=== PATIENT | male | born 2000 ===

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

== ENCOUNTER 2018-08-27 18:49 | Emergency (ER) | payer MEDICAID, OTHER ==
[2018-08-27] MEDS ORDERED: Sodium Chloride 0.9% 1,000 ML IV STA (19:33)
[2018-08-27 20:05] LABS: BASO # 0.1 K/uL (0.0-0.2); BASO % 1.1 % (0.0-2.0); EOS % 0.1 % (0.0-4.0); HEMOGLOBIN 14.8 g/dL (12.0-18.0); LYMPH # 0.4 K/uL (1.0-4.3); LYMPH % 2.7 % (20.0-40.0); MEAN CELL VOLUME 85.1 fl (80.0-94.0); MEAN CORPUSCULAR HEMOGLOBIN 28.8 pg (27.0-31.0); MEAN CORPUSCULAR HGB CONC 33.8 g/dL (33.0-37.0); MEAN PLATELET VOLUME 7.4 fl (7.2-11.7); MONO # 0.6 K/uL (0.0-0.8); MONO % 4.2 % (0.0-10.0); NEUT # 12.1 K/uL (1.8-7.0); NEUT % 91.9 % (50.0-75.0); PLATELET COUNT 314 K/uL (130-400); RBC 5.14 Mil/uL (4.40-5.90); RED CELL DISTRIBUTION WIDTH 12.9 % (11.5-14.5); WHITE BLOOD COUNT 13.2 K/uL (4.8-10.8)
--- NOTE | 2018-08-27 20:25 | ED PDOC ---
HPI:Nausea, Vomiting, Diarrhea Time Seen by Provider: 08/27/18 19:10 Chief Complaint (Nursing): GI Problem Chief Complaint (Provider): GI Problem History Per: Patient History/Exam Limitations: no limitations Onset/Duration Of Symptoms: Hrs (x 10) Current Symptoms Are (Timing): Still Present Associated Symptoms: Fever, Nausea, Vomiting, Diarrhea, Loss Of Appetite, Other (body aches) Additional Complaint(s): 17 year old male with no significant medical history presents to the ED for evaluation of multiple episodes of vomiting, beginning this morning around 11am. He reports 8 episodes of non bloody vomiting with the last episode at 1pm. Since then, he developed body aches, fever, nausea, a few episodes of loose stool and lost his appetite. Patient took Alkaseltzer with some relief. The last meal he had was chicken wings last night. Denies sick contacts and recent travel. PMD: non [facility] provider Past Medical History Reviewed: Historical Data, Nursing Documentation, Vital Signs Vital Signs: Last Vital Signs Temp 101 F H 08/27/18 19:13 Pulse 115 H 08/27/18 19:13 Resp 19 08/27/18 19:13 BP 108/58 L 08/27/18 19:17 Pulse Ox 99 08/27/18 19:13 - Medical History PMH: No Chronic Diseases - Surgical History Surgical History: No Surg Hx - Family History Family History: States: No Known Family Hx - Social History Current smoker - smoking cessation education provided: No Alcohol: None Drugs: Denies - Home Medications Home Medications: Ambulatory Orders Medication Instructions Recorded Penicillin VK [Pen-Vee K] 500 mg PO Q6 #40 tab 11/06/16 Acetaminophen [Tylenol Extra 1,000 mg PO Q6 PRN #100 tablet 08/27/18 Strength] Ondansetron ODT [Zofran ODT] 1 odt PO Q6 PRN #30 odt 08/27/18 - Allergies Allergies/Adverse Reactions: Allergies Allergy/AdvReac Type Severity Reaction Status Date / Time No Known Allergies Allergy Verified 08/27/18 18:57 Review of Systems ROS Statement: Except As Marked, All Systems Reviewed And Found Negative Constitutional: Positive for: Fever, Other (body aches and loss of appetite) Gastrointestinal: Positive for: Nausea, Vomiting, Diarrhea Physical Exam - Reviewed Nursing Documentation Reviewed: Yes Vital Signs Reviewed: Yes - Physical Exam Appears: Positive for: No Acute Distress (febrile) Head Exam: Positive for: ATRAUMATIC, NORMAL INSPECTION, NORMOCEPHALIC Skin: Positive for: Normal Color, Warm, Dry Eye Exam: Positive for: EOMI, PERRL ENT: Positive for: Pharynx Is (clear). Negative for: Pharyngeal Erythema, Tonsillar Exudate Neck: Positive for: Painless ROM, Supple Cardiovascular/Chest: Positive for: Tachycardia (regular rhythm). Negative for: Murmur Respiratory: Positive for: Normal Breath Sounds. Negative for: Wheezing, Respiratory Distress Gastrointestinal/Abdominal: Positive for: Normal Exam, Soft. Negative for: Tenderness, Mass, Guarding, Rebound Back: Positive for: Normal Inspection. Negative for: Muscle Spasm Extremity: Positive for: Normal ROM. Negative for: Deformity Lymphatic: Negative for: Adenopathy Neurological/Psych: Positive for: Awake, Alert. Negative for: Motor/Sensory Deficits - Laboratory Results Result Diagrams: 08/27/18 19:50 08/27/18 19:50 - ECG O2 Sat by Pulse Oximetry: 99 (RA) Pulse Ox Interpretation: Normal Medical Decision Making Medical Decision Makin:33 Impression: vomiting and fever Differential diagnoses include but are not limited to: viral illness, gastroenteritis, dehydration, electrolyte abnormality Initial Plan: --CMP --CBC --Lipase --lactic acid --magnesium --Phosphate --Dextrose 5%-0.9% NS 500 ml --NS IV --Tylenol 975 mg PO --Zofran 4 mg IV --Toradol 15 mg IM --urine dip Labs demonstrate leukocytosis. No emergently significant lab abnormalities 930p Pt feels better. Tolerating PO. Vitals improved. Abdomen continues to be benign on exam. Stable for discharge. Scribe Attestation: Documented by Priscilla Nguyen, acting as a scribe for Radha Barney MD. Provider Scribe Attestation: All medical record entries made by the Scribe were at my direction and personally dictated by me. I have reviewed the chart and agree that the record accurately reflects my personal performance of the history, physical exam, medical decision making, and the department course for this patient. I have also personally directed, reviewed, and agree with the discharge instructions and disposition. Disposition - Clinical Impression Clinical Impression: Vomiting, Febrile illness Counseled Patient/Family Regarding: Studies Performed, Diagnosis, Need For Followup, Rx Given - Disposition Disposition: Routine/Home Disposition Time: 21:45 Condition: IMPROVED Additional Instructions: DRINK PLENTY OF HYDRATING FLUIDS AND STICK TO BLAND DIET. FOLLOWUP WITH YOUR DOCTOR IN 24-48 HOURS FOR REEVALUATION RETURN FOR WORSENING SYMPTOMS SUCH STOMACH PAINS, INTRACTABLE VOMITING, FAINTING OR NEAR FAINTING, DIFFICULTY BREATHING OR CHEST PAIN. Prescriptions: Acetaminophen [Tylenol Extra Strength] 1,000 mg PO Q6 PRN #100 tablet PRN Reason: FEVER OR PAIN Ondansetron ODT [Zofran ODT] 1 odt PO Q6 PRN #30 odt PRN Reason: Nausea/Vomiting Instructions: Nausea and Vomiting, Adult (DC), Fever, Adult (DC) Forms: [facility] ([place]ian), [facility] ED School/Work Excuse
[2018-08-27 20:30] LABS: ALB/GLOB RATIO 1.3 (1.0-2.1); ALBUMIN 4.4 g/dL (3.5-5.0); ALT/SGPT 63 U/L (21-72); AST/SGOT 30 U/L (17-59); BLOOD UREA NITROGEN 20 mg/dl (9-20); CALCIUM 9.1 mg/dL (8.4-10.2); GFR NON-AFRICAN AMERICAN > 60; LIPASE 47 U/L (23-300)
[2018-08-27 21:31] LABS: BANDS 3 % (0-2); LYMPHOCYTE 6 % (20-50); MONOCYTE 6 % (0-10); NEUTROPHIL 85 % (42-75); TOTAL CELLS COUNTED 100
[2018-08-27 21:32] LABS: HYPOCHROMIC SLIGHT; PLATELET ESTIMATE NORMAL (NORMAL)
[2018-08-27 21:53] VITALS: BP 110/68; PULSE 92; RESP 18; TEMP 98.9
[2018-08-27 22:33] VITALS: O2SAT 96
== END 2018-08-27 22:33 | disposition home or self-care (01) ==
LOC: H.ER 18:49
DX: R50.9 Fever, unspecified (principal); R11.10 Vomiting, unspecified; D72.829 Elevated white blood cell count, unspecified
CPT/HCPCS: 80053; 83605; 83690; 83735; 84100; 85025; 96361; 96374; 96375; 99284; J1885; J2405; J7030; J7042